=== PATIENT | female | born 2000 | race African-American/Black ===

== ENCOUNTER 2020-08-28 10:41 | Emergency (ER) | payer OTHER ==
[~2020-08-28] VITALS: Ht 165.1 cm; Wt 56.8 kg
[2020-08-28 10:53] VITALS: TEMP 98.2
[2020-08-28 11:38] LABS: COLLECTION METHOD CLEAN CATCH
[2020-08-28 11:45] LABS: BASO % 0.5 % (0.0-2.0); EOS # 0.1 (0.0-0.7); EOS % 0.6 % (0-4.0); GRAN # 6.3 (1.4-6.5); HEMOGLOBIN 10.6 g/dl (12.5-16.0); LYMPH # 1.8 (1.2-3.4); LYMPH % 20.4 % (20.0-51.0); MEAN CELL VOLUME 94 fl (80.0-100.0); MEAN CORPUSCULAR HEMOGLOBIN 31 pg (27.0-31.0); MEAN CORPUSCULAR HGB CONC 33 g/dl (33.0-37.0); MEAN PLATELET VOLUME 9.9 fl (7.4-10.4); MONO # 0.5 (0.1-0.6); PLATELET COUNT 206 K/mm3 (130-400); REDCELL DISTRIBUTION WIDTH-CV 12.7 % (11.5-14.5)
[2020-08-28 11:48] LABS: MUCOUS Present /lpf; PH 8 (5-8); SQUAMOUS EPITHELIAL 0-2 /hpf; URINE APPEARANCE Clear; URINE BACTERIA None Seen /hpf; URINE BILIRUBIN Negative (NEGATIVE); URINE BLOOD Negative (NEGATIVE); URINE COLOR Yellow; URINE GLUCOSE Negative (NEGATIVE); URINE KETONE Negative (NEGATIVE); URINE LEUKOCYTE ESTERASE Negative (NEGATIVE); URINE NITRATE Negative (NEGATIVE); URINE PROTEIN(semi-quant) Negative (NEGATIVE); URINE UROBILINOGEN Negative (NEGATIVE)
[2020-08-28 11:51] LABS: HEMATOCRIT 31.8 % (37.0-47.0)
[2020-08-28 12:01] LABS: ALBUMIN 3.6 gm/dL (3.5-5.0); BILIRUBIN,TOTAL 0.1 mg/dL (0.0-1.0); CALCIUM 8.8 mg/dL (8.4-10.2); CREATININE, serum 0.57 (0.52-1.25); POTASSIUM 3.8 mmol/L (3.4-5.0); TOTAL PROTEIN 6.6 gm/dL (6.4-8.2)
[2020-08-28 12:41] VITALS: BP 101/63; PULSE 78
== END 2020-08-28 12:43 | disposition home or self-care (01) ==
LOC: COL.ER 10:41
PROVIDERS: Nurse Practitioner
DX: O26.891 Other specified pregnancy related conditions, first trimester (principal); R10.32 Left lower quadrant pain; Z3A.13 13 weeks gestation of pregnancy; Z87.891 Personal history of nicotine dependence

== ENCOUNTER 2020-10-22 01:21 | Outpatient (CLI) | payer OTHER ==
[~2020-10-22] VITALS: Ht 165.1 cm; Wt 54.5 kg
--- NOTE | 2020-10-22 01:37 | NUR ---
0137- PT PRESENTS TO LDR COMPLAINING OF NAUSEA AND VOMITTING, ALSO SOME BLOOD IN HER VOMIT. AMBULATORY TO ROOM LR6, CHANGED INTO GOWN. 0142- VSS. T'S DOPPLERED 145. PT REPORTS SHE IS FEELING MOVEMENT, DENIES VAGINAL LEAKING OR BLEEDING. PLAN OF CARE DISCUSSED. 0150- NURSING ADMISSION AND HISTORY TAKEN. DR BARNES UPDATED ON PT HISTORY AND COMPLAINT. ORDERS RECEIVED. 0215- IV START TO LEFT HAND X3 ATTEMPTS. BLOOD DRAWN FOR LABS AND LR INFUSING ORDERED, MEDS GIVEN ORDERED. 0305- LR STILL INFUSING, PT REPORTS THAT SHE IS FEELING BETTER AFTER FLUIDS AND MEDS. SHE WILL CALL OUT WHEN HER FLUIDS ARE DONE INFUSING. 0310- DR BARNES AT DESK AND IS UPDATED ON PT. HE REVIEWS LABWORK. STATES PT MAY DISMISS TO HOME WHEN HER FLUIDS ARE IN IF SHE IS STILL FEELING BETTER. 0315- PT UPDATED ON PLAN OF CARE. 0355- LR DONE INFUSING. IV SITE DC'D WITH CANULA INTACT. FHT'S DOPPLERED 140. 0420- DISCHARGE INSTRUCTIONS GIVEN AND PT VERBALIZES UNDERSTANDING. PT DISMISSED TO HOME ACCOMPANIED BY BOYFRIEND.
[2020-10-22 01:45] VITALS: BP 106/60; PULSE 76; TEMP 98.4
[2020-10-22 02:38] LABS: ALBUMIN 3.9 gm/dL (3.5-5.0); BILIRUBIN,TOTAL 0.2 mg/dL (0.0-1.0); CALCIUM 8.9 mg/dL (8.4-10.2); CREATININE, serum 0.5 (0.52-1.25); POTASSIUM 3.7 mmol/L (3.4-5.0); TOTAL PROTEIN 7.1 gm/dL (6.4-8.2)
[2020-10-22] MEDS ORDERED: UNISOM25 MG PO (04:03)
[2020-10-22] MEDS ORDERED: B & O SUPPRETTE1 SUP (04:03)
== END 2020-10-22 04:20 | disposition home or self-care (01) ==
LOC: LDRO 01:21 → LDR 01:50 → LDRO 04:20
PROVIDERS: Obstetrics & Gynecology
DX: O21.2 Late vomiting of pregnancy (principal); Z3A.23 23 weeks gestation of pregnancy
CPT/HCPCS: OP; J2405; J7120

== ENCOUNTER 2020-12-14 22:59 | Emergency (ER) | payer OTHER ==
[~2020-12-14] VITALS: Ht 165.1 cm; Wt 63.6 kg
[~2020-12-14 22:59] MED LIST: B & O SUPPRETTE1 SUP; UNISOM25 MG PO
[2020-12-14 23:20] VITALS: BP 102/61; PULSE 84
== END 2020-12-14 23:48 | disposition left against medical advice (07) ==
LOC: COL.ER 22:59
DX: R52 Pain, unspecified (principal)

== ENCOUNTER 2021-01-06 09:30 | Outpatient (CLI) | payer OTHER ==
[~2021-01-06] VITALS: Ht 165.1 cm; Wt 64.5 kg
--- NOTE | 2021-01-06 09:30 | NUR ---
0935- 34.4 G1L0 here with c/o decreased movement and vaginal bleeding. Reports rare contraction. Denies any LOF. Ambulatory to LDR3 with SO. Oriented to room and POC. Changes into clean gown. UA collected per prior orders from Dr. Mir. 0945- EFM explained and placed. SVE CL/TH/HI. VS obtained. Assessment completed. Labs drawn per prior orders from Dr. Mir.
[2021-01-06] MEDS ORDERED: PRENATAL TABLET PO (10:08)
[2021-01-06] MEDS ORDERED: SLOW FE142 MG PO (10:09)
[2021-01-06 10:11] LABS: MEAN CELL VOLUME 89 fl (80.0-100.0); MEAN CORPUSCULAR HGB CONC 34 g/dl (33.0-37.0); MEAN PLATELET VOLUME 10.2 fl (7.4-10.4); PLATELET COUNT 203 K/mm3 (130-400); RED BLOOD COUNT 3.21 M/mm3 (4.10-5.30); REDCELL DISTRIBUTION WIDTH-CV 13.6 % (11.5-14.5)
[2021-01-06 10:15] VITALS: BP 104/64; PULSE 89; TEMP 98.7
[2021-01-06 10:16] LABS: HEMATOCRIT 28.6 % (37.0-47.0); HEMOGLOBIN 9.7 g/dl (12.5-16.0); MEAN CORPUSCULAR HEMOGLOBIN 30 pg (27.0-31.0)
[2021-01-06 10:20] LABS: ALBUMIN 3.4 gm/dL (3.5-5.0); BILIRUBIN,TOTAL 0.1 mg/dL (0.0-1.0); CALCIUM 8.6 mg/dL (8.4-10.2); CREATININE, serum 0.57 (0.52-1.25); POTASSIUM 3.7 mmol/L (3.4-5.0); TOTAL PROTEIN 6.6 gm/dL (6.4-8.2)
[2021-01-06 10:27] LABS: COLLECTION METHOD CLEAN CATCH
[2021-01-06 10:33] LABS: PH 7 (5-8); SQUAMOUS EPITHELIAL 0-2 /hpf; URINE APPEARANCE Clear; URINE BACTERIA Rare /hpf; URINE BILIRUBIN Negative (NEGATIVE); URINE BLOOD 1+ (NEGATIVE); URINE COLOR Yellow; URINE GLUCOSE Negative (NEGATIVE); URINE KETONE Negative (NEGATIVE); URINE LEUKOCYTE ESTERASE Negative (NEGATIVE); URINE NITRATE Negative (NEGATIVE); URINE PROTEIN(semi-quant) Negative (NEGATIVE); URINE RBC 0-2 /hpf; URINE UROBILINOGEN Negative (NEGATIVE); URINE WBC 0-2 /hpf
--- NOTE | 2021-01-06 10:42 | NUR ---
1042- Dr. Mir updated on patient. See physician notification. 1045- EFM off. Pt updated on poc. 1105- Discharge instructions reviewed with pt and SO who verbalize understanding. Ambulatory off unit.
[2021-01-06 10:45] VITALS: BP 101/61; PULSE 92
== END 2021-01-06 11:05 | disposition home or self-care (01) ==
LOC: LDR 09:30 → LDRO 09:30
PROVIDERS: Obstetrics & Gynecology
DX: O46.93 Antepartum hemorrhage, unspecified, third trimester (principal); Z3A.34 34 weeks gestation of pregnancy
CPT/HCPCS: OP

== ENCOUNTER 2021-02-09 22:23 | Outpatient (CLI) | payer OTHER ==
[~2021-02-09] VITALS: Ht 165.1 cm; Wt 69.5 kg
[~2021-02-09 22:23] MED LIST changes: +PRENATAL TABLET PO; +SLOW FE142 MG PO
--- NOTE | 2021-02-09 22:35 | NUR ---
PT ARRIVES VIA WHEELCHAIRI TO UNIT C/O CONTRACTIONS STARTING AT 1500 TODAY. REPORTS CONTRACTIONS ARE "ABOUT EVERY 5 MINUTES". DENIES LOF, REPORTS POSITIVE MOVEMENT. EFM/TOCO PLACED. CATEGORY 1 STRIP. INITIAL SVE UPON ARRIVAL /-3. WILL RECHECK IN 1 HOUR.
[2021-02-09 23:00] VITALS: BP 102/56; PULSE 93; TEMP 98.9
[2021-02-09 23:30] VITALS: BP 105/61; PULSE 86
[2021-02-10 00:03] VITALS: BP 104/61; PULSE 67
--- NOTE | 2021-02-10 00:10 | NUR ---
DISCHARGE INSTRUCTION REVIEWED IN DEPTH AND UNDERSTOOD. PT DENIES ANY FURTHER QUESTIONS OR CONCERNS AT THIS TIME. AMBULATORY FROM UNIT WITH FOB IN STABLE CONDITION.
== END 2021-02-10 00:10 | disposition home or self-care (01) ==
LOC: LDRO 22:23 → LDR 22:35 → LDRO 02-10 00:10
DX: O62.9 Abnormality of forces of labor, unspecified (principal); Z3A.39 39 weeks gestation of pregnancy
CPT/HCPCS: OP

== ENCOUNTER 2021-02-13 13:06 | Outpatient (CLI) | payer OTHER ==
[~2021-02-13] VITALS: Ht 165.1 cm; Wt 69.5 kg
--- NOTE | 2021-02-13 13:05 | NUR ---
1305- 40.0, G1L0 here with c/o generalized abdominal/leg pain. Ambulatory to LDR5. Changes into clean gown. 1317- This RN to bedside. EFM explained and placed x2. Traing well. VS obtained. Assessment completed. Patient reports irregular contractions. Reports normal movement. Denies any LOF or VB. 1330- SVE by this RN /-3, HECTOR. POC reviewed with pt. 1333- Dr. Yang updated on patient. See physician notification. Magaly updated on POC, verbalizes understanding.
[2021-02-13 13:45] VITALS: BP 108/62; PULSE 85; TEMP 99
[2021-02-13 14:07] VITALS: BP 106/59; PULSE 79
--- NOTE | 2021-02-13 14:13 | NUR ---
Discharge instructions reviewed. Patient verbalizes understanding. Changes out of hospital gown. Off unit to private vehicle via .
== END 2021-02-13 14:13 | disposition home or self-care (01) ==
LOC: LDRO 13:06 → LDR 13:06 → LDRO 14:13
DX: O26.893 Other specified pregnancy related conditions, third trimester (principal); R10.9 Unspecified abdominal pain; Z3A.40 40 weeks gestation of pregnancy
CPT/HCPCS: OP

== ENCOUNTER 2021-02-16 21:03 | Inpatient (IN) | payer OTHER ==
[2021-02-16] VITALS (8 sets, daily range): BP systolic 101–118; BP diastolic 56–72; PULSE 80–96; TEMP 98.7
[~2021-02-16] VITALS: Ht 165.1 cm; Wt 69.5 kg
--- NOTE | 2021-02-16 21:08 | NUR ---
2107- Pt ambulatory onto unit. G1L0 and 40 and 3. Here for labor check because she thinks her water may have broke this morning. EFM and TOCO connected to pt and VS obtained and WNL. Denies VB or feeling regular contractions. Positive movement per pt. Dr. Morris called and situation explained, orders given. See physician notification.
--- NOTE | 2021-02-16 22:30 | NUR ---
DR. WHITLEY IN ROOM TO EVALUATE PT. DISCUSSES CONCERNS OF TACHYCARDIA SINCE ARRIVAL. WOULD LIKE TO RUN LABS AND PROCEED WITH PRIMARY C/S. DISCUSS RISKS AND BENEFITS, MOTHER AND FOB VERBALIZE UNDERSTANDING, AGREE TO PRIMARY C/S.
--- NOTE | 2021-02-16 22:54 | NUR ---
MONITORING DC'D AT THIS TIME, AMBULATORY TO OR FOR PRIMARY C/S.
[2021-02-16 22:57] LABS: BASO % 0.3 % (0.0-2.0); EOS # 0.1 (0.0-0.7); EOS % 0.4 % (0-4.0); GRAN # 8.2 (1.4-6.5); GRAN % 71.8 % (42.2-75.2); HEMATOCRIT 33.4 % (37.0-47.0); HEMOGLOBIN 11.2 g/dl (12.5-16.0); LYMPH # 2.2 (1.2-3.4); LYMPH % 19.3 % (20.0-51.0); MEAN CELL VOLUME 86 fl (80.0-100.0); MEAN CORPUSCULAR HEMOGLOBIN 29 pg (27.0-31.0); MEAN CORPUSCULAR HGB CONC 34 g/dl (33.0-37.0); MEAN PLATELET VOLUME 10.6 fl (7.4-10.4); MONO # 0.8 (0.1-0.6); MONO % 7.2 % (1.7-9.3); PLATELET COUNT 266 K/mm3 (130-400); RED BLOOD COUNT 3.89 M/mm3 (4.10-5.30); REDCELL DISTRIBUTION WIDTH-CV 13.5 % (11.5-14.5)
[2021-02-16 23:07] LABS: ALBUMIN 4.1 gm/dL (3.5-5.0); BILIRUBIN,TOTAL 0.3 mg/dL (0.0-1.0); CREATININE, serum 0.59 (0.52-1.25); TOTAL PROTEIN 7.6 gm/dL (6.4-8.2)
[2021-02-16 23:36] LABS: TSH w REFLEX 1.617 uIU/mL (0.350-4.940)
[2021-02-16 23:57] LABS: COLLECTION METHOD CLEAN CATCH
[2021-02-17] VITALS (20 sets, daily range): BP systolic 99–126; BP diastolic 57–73; PULSE 59–105; TEMP 97.3–98.3
[2021-02-17 00:02] LABS: PH 7 (5-8); SQUAMOUS EPITHELIAL 0-2 /hpf; URINE APPEARANCE Clear; URINE BACTERIA None Seen /hpf; URINE BILIRUBIN Negative (NEGATIVE); URINE BLOOD Negative (NEGATIVE); URINE COLOR Straw; URINE GLUCOSE Negative (NEGATIVE); URINE KETONE Negative (NEGATIVE); URINE LEUKOCYTE ESTERASE Negative (NEGATIVE); URINE NITRATE Negative (NEGATIVE); URINE PROTEIN(semi-quant) Negative (NEGATIVE); URINE RBC 0-2 /hpf; URINE UROBILINOGEN Negative (NEGATIVE); URINE WBC 0-2 /hpf
[2021-02-17 00:40] LABS: TRICYCLIC ANTIDEPRESS URINE NEGATIVE
--- NOTE | 2021-02-17 03:00 | NUR ---
REPORT FROM SANDY Last RN. CARE ASSUMED BY THIS RN AT THIS TIME.
--- NOTE | 2021-02-17 05:00 | NUR ---
PT REPORTS FULL SENSATION TO BLE. ABLE TO RAISE AND HOLD LEGS X5 SECONDS. ASSISTED TO EDGE OF BED, DENIES DIZZINESS/NAUSEA/LIGHT HEADEDNESS. AMBULATORY TO RESTROOM WITH SLOW STEADY GAIT. ASSISTED WITH SABINE CARE AND INTO CLEAN MESH UNDERWEAR/PAD/GOWN. LOCHIA SCANT, NO CLOTS. PAIN MANAGEABLE. ELIZALDE DC'D WITH 650ML CLEAR YELLOW URINE EMPTIED PRIOR TO REMOVAL. INT TO RIGHT HAND DC'D PER PT REQUEST. VITAL SIGNS STABLE. DENIES FURTHER NEEDS AT THIS TIME. CALL LIGHT WITHIN REACH UPON EXITING. BABY REMAINS IN ROOM AT THIS TIME SLEEPING IN CRIB.
[2021-02-17] MEDS ORDERED: MOTRIN 800800 MG/TAB PO (08:14)
[2021-02-17] MEDS ORDERED: PERCOCET 325 MG1 TA2 PO (08:15)
--- NOTE | 2021-02-17 08:40 | NUR ---
Lab her to draw blood. Tylenol 1000 mg given per request and as ordered.
[2021-02-17 09:02] LABS: HEMATOCRIT 28.7 % (37.0-47.0); HEMOGLOBIN 9.8 g/dl (12.5-16.0)
--- NOTE | 2021-02-17 09:25 | NUR ---
Initial visit; Patient thanked Treatment Plant Mechanic for offering congratulations and God's blessings for the of their daughter. Treatment Plant Mechanic thanked family for choosing our hospital.
--- NOTE | 2021-02-17 11:02 | NUR ---
vault worker met with patient and father of the baby to assess for needs. This is first baby for both and they state that their families have helped them secure all needed supplies and equipment for their baby. Patient and father of the baby reside in [place] and plan, in the near future will move to be near her family in [place] and then possible to [place]. Patient states she has health insurance through her mother. Worker made arrangements for our financial counselor to meet with patient to apply for [employer] for her baby. Patient states they don't qualify for [facility] at this time. Worker provided resource guidebook. Mother and father of the baby deny unmet needs at this time. Worker and patient discussed mother's use of edible cannabinoids throughout and just prior to delivery. Infant's urine drug screen was positive for cannabinoids as well as mothers. Mother denies concern for addiction and need for treatment. Worker advised that if mother ever felt a need for treatment, that she could access this. Mother states that they have local family support from father's side if they need help.
--- NOTE | 2021-02-17 12:09 | NUR ---
Ibuprofen 600 mg. given as ordered.
[2021-02-18 07:30] VITALS: BP 103/82; PULSE 87; TEMP 98
[2021-02-18 20:05] VITALS: BP 100/60; PULSE 83; TEMP 98.3
[2021-02-19 03:00] VITALS: BP 103/70; PULSE 68; TEMP 98
[2021-02-19 07:30] VITALS: BP 110/67; PULSE 71; TEMP 97.9
--- NOTE | 2021-02-22 10:59 | NUR ---
On 02/17/2021, manager social work filed a DCF report #[id number].
--- NOTE | 2021-02-22 11:02 | NUR ---
On 02/17/2021, social worker psychiatric faxed positive cannabinoid results for patient and to [facility].
--- NOTE | 2021-02-22 11:11 | NUR ---
Infant's cord was positive for cannabinoids. smokehouse worker filed a CPS report #[id number] and faxed positive results to [facility].
== END 2021-02-19 11:05 | disposition home or self-care (01) | DRG 787 ==
LOC: LDRO 21:03 → LDR 21:10 → LDRO 22:36 → LDR 22:37 → OB 22:37
PROVIDERS: Obstetrics & Gynecology; ADMIT Obstetrics & Gynecology
PROC: 10D00Z1 Extraction of Products of Conception, Low, Open Approach (ICD-10-PCS; principal; 2021-02-17)
DX: O48.0 Post-term pregnancy (principal); O99.324 Drug use complicating childbirth; Z3A.40 40 weeks gestation of pregnancy; O99.284 Endocrine, nutritional and metabolic diseases complicating childbirth; O99.344 Other mental disorders complicating childbirth; O99.02 Anemia complicating childbirth; D64.9 Anemia, unspecified; F12.90 Cannabis use, unspecified, uncomplicated; F32.9 Major depressive disorder, single episode, unspecified; F41.9 Anxiety disorder, unspecified; Z37.0 Single live birth
CPT/HCPCS: J0171; J0690; J1885; J2175; J2370; J2405; J2590; J7120

== ENCOUNTER 2021-07-10 15:53 | Emergency (ER) | payer MEDICAID ==
[~2021-07-10] VITALS: Ht 165.1 cm; Wt 47.7 kg
[~2021-07-10 15:53] MED LIST changes: +MOTRIN 800800 MG/TAB PO; +PERCOCET 325 MG1 TA2 PO
[2021-07-10 16:07] VITALS: TEMP 98.6
[2021-07-10 16:49] LABS: STREP SCREEN NEGATIVE
[2021-07-10 17:25] VITALS: BP 100/60; PULSE 85
== END 2021-07-10 17:30 | disposition home or self-care (01) ==
LOC: COL.ER 15:53
PROVIDERS: Nurse Practitioner
DX: U07.1 COVID-19 (principal)